=== PATIENT | female | born 1935 | race Caucasian/White ===

== ENCOUNTER → 2016-09-02 | Outpatient (CLI) | payer OTHER | LOC: BMCIMAGING 09:14 | DX: Z12.31 Encounter for screening mammogram for malignant neoplasm of breast (principal) | CPT/HCPCS: G0202 ==

== ENCOUNTER 2017-04-30 13:19 | Observation (INO) | payer OTHER, MEDICARE ==
[2017-04-30] MEDS ORDERED: diphenhydrAMINE 25 MG CAP PO ONE (13:46)
[2017-04-30] MEDS ORDERED: FAMOTIDINE 20 MG TAB PO ONE (13:46)
[2017-04-30] MEDS ORDERED: ASPIRIN EC 325 MG TAB PO ONE ×2 (13:46→14:29)
[2017-04-30] MEDS ORDERED: NS 1,000 ML IV ONE (13:46)
[2017-04-30] MEDS ORDERED: DIAZEPAM 5 MG TAB PO ONE (13:46)
[2017-04-30] MEDS ORDERED: methylPREDNISolone SOD SUCC 125 MG/2 ML VIAL IVP ONE (14:01)
[2017-04-30] MEDS ORDERED: FAMOTIDINE 20 MG/NACL 50 ML IV ONE (14:01)
--- NOTE | 2017-04-30 14:17 | PDHPUP ---
History & Physical Update H&P update statement: This history and physical update is based on an assessment of the patient which was completed after admission or registration (within 24 hours), but prior to the surgery/procedure. H&P update: H&P reviewed & patient examined, no change in patient's condition since H&P completed
--- NOTE | 2017-04-30 14:17 | PDPROPOC ---
Sedation Plan of Care Sedation Plan of Care: vital signs stable, mental status noted, patient educated of risks, benefits, alternatives, patient can tolerate sedation ASA Classification: ASA 2 Planned drugs: fentanyl, midazolam Mallampati Score: Class 1 Mallampati Reference Image: Patient passed 3-3-2 rule?: Yes
[2017-04-30] MEDS ORDERED: LIDOCAINE 1% 300 MG/30 ML SDV ONE (14:18)
[2017-04-30] MEDS ORDERED: MIDAZOLAM 2 MG/2 ML VIAL ONE (14:19)
[2017-04-30] MEDS ORDERED: IOPAMIDOL (ISOVUE-370) 150 ML BTL IV ONE (14:19)
[2017-04-30] MEDS ORDERED: HEPARIN 10,000 UNIT/10 ML MDV ONE (14:19)
[2017-04-30] MEDS ORDERED: fentaNYL 100 MCG/2 ML INJ ONE (14:19)
[2017-04-30] MEDS ORDERED: VERAPAMIL 5 MG/2 ML VIAL ONE (14:19)
[2017-04-30 14:23] LABS: PLATELET COUNT 295 10^3/uL (150-400)
--- NOTE | 2017-04-30 14:23 | CPEKG ---
Heart Rate: 85 RR Interval: 706 P-R Interval: 180 QRSD Interval: 88 QT Interval: 408 QTC Interval: 486 P [place]: 75 QRS [place]: 96 T Wave [place]: 17 EKG Severity - BORDERLINE ECG - EKG Impression: SINUS RHYTHM EKG Impression: CONSIDER RIGHT VENTRICULAR HYPERTROPHY EKG Impression: BORDERLINE PROLONGED QT INTERVAL Electronically Signed By: Luis Lock 30-Apr-2017 16:25:46
[2017-04-30] MEDS ORDERED: FAMOTIDINE 20 MG/NACL/50 ML BAG IV ONE (14:28)
[2017-04-30] MEDS ORDERED: methylPREDNISolone SOD SUCC 125 MG/2 ML VIAL ONE (14:28)
[2017-04-30] MEDS ORDERED: DIAZEPAM 5 MG TAB ONE (14:29)
[2017-04-30 14:35] LABS: INR 0.95 (0.83-1.16); PROTIME(PATIENT) 12.9 SEC (12.0-15.0)
--- NOTE | 2017-04-30 15:24 | PDDXCAT ---
Diagnostic Cath Note - . Date: 04/30/17 Clean Up Supervisor: Ferny Indication: Class I/II angina, intolerance to med therapy or failure to respond High-risk criteria on non-invasive testing: stress-induced moderate-size multiple perfusion defects - Procedure Access: right wrist Procedure: left heart catheterization, coronary angiography, left ventriculogram - Materials Left Heart Cath size: 5F Left Heart Cath materials: pigtail, other (SiteSeer4) - Findings-Left Heart Catheterization LM: Normal LAD: Normal LCX: Normal: Dominant RCA: Normal: Non dominant EDP: 18 mm of mercury LVEF: 55 Wall motion: Normal Complications: None Estimated blood loss: <50ml Closure method: TR Band Assessment: Angiographically normal coronary arteries. Normal LV systolic function.
[2017-04-30] MEDS: levETIRAcetam 500 MG TAB PO SCH (19:58)
[2017-04-30] MEDS ORDERED: ATORVASTATIN CALCIUM 10 MG TAB PO SCH (21:00)
[2017-04-30] MEDS ORDERED: ASPIRIN EC 81 MG TAB PO SCH (21:00)
[2017-05-01 07:45] VITALS: BP 102/67; PULSE 76; RESP 20; TEMP 97.6; O2SAT 95
[2017-05-01] MEDS: levETIRAcetam 500 MG TAB PO SCH (08:28)
[2017-05-01] MEDS ORDERED: CHOLECALCIFEROL VIT D3 1,000 UNITS TAB PO SCH (09:00)
[2017-05-01] MEDS ORDERED: ASCORBIC ACID 500 MG TAB PO SCH (09:00)
[2017-05-01] MEDS ORDERED: CYANO/VITAMIN B12 1000 MCG TAB PO SCH (09:00)
--- NOTE | 2017-05-01 09:15 | CPEKG ---
Heart Rate: 87 RR Interval: 690 P-R Interval: 224 QRSD Interval: 90 QT Interval: 392 QTC Interval: 472 P [place]: 72 QRS [place]: 87 T Wave [place]: -48 EKG Severity - ABNORMAL ECG - EKG Impression: SINUS RHYTHM EKG Impression: VENTRICULAR PREMATURE COMPLEX EKG Impression: FIRST DEGREE AV BLOCK EKG Impression: CONSIDER RIGHT VENTRICULAR HYPERTROPHY Electronically Signed By: Luis Lock 01-May-2017 09:35:24
--- NOTE | 2017-05-01 10:40 | PDDCSUM ---
Discharge Summary Discharge Summary: Date of admission 04/30/2017 Date of discharge 05/01/2017 Admission diagnosis PVCs, chest pain, abnormal stress test Discharge diagnosis: PVCs Procedure performed left heart catheterization coronary ventricular angiography. Follow-up Damian Fuller. Follow-up Chato Ray. Medications unchanged from admission. Metformin to be held for 48 hours. Hospital course patient was admitted electively for diagnostic coronary angiogram. This was done in the setting of chest pain, abnormal treadmill test , frequent PVCs. Patient was found have angiographically normal coronary arteries with normal LV systolic function. She was observed overnight with history of diabetes. Vital signs remained stable. Puncture site was healing well without erythema or edema. She is discharged home this morning with continued clinical care.
--- NOTE | 2017-05-01 10:59 | CPEKG ---
Heart Rate: 124 RR Interval: 484 QRSD Interval: 90 QT Interval: 316 QTC Interval: 454 QRS [place]: 101 T Wave [place]: 261 EKG Severity - ABNORMAL ECG - EKG Impression: SUPRVENTRICULAR TACHYCARDIA / ATRIAL FLUTTER, A-RATE 286 EKG Impression: MULTIFORM VENTRICULAR PREMATURE COMPLEXES EKG Impression: CONSIDER RVH W/ SECONDARY REPOL ABNORMALITY EKG Impression: NONSPECIFIC REPOL ABNORMALITY, LATERAL LEADS Electronically Signed By: Luis Lock 01-May-2017 13:52:31
--- NOTE | 2017-05-01 16:32 | ASDISCHSUM ---
Discharge Information Plan Status:Home with No Needs Medically Cleared to Leave:04/30/2017 Discharge Date:05/01/2017 11:57 AM CM D/C Disposition: ADT D/C Disposition:Home, Routine, Self-Care Projected Discharge Date:05/01/2017 12:00 AM Transportation at D/C: Discharge Delay Reason: Follow-Up Date:05/01/2017 12:00 AM Discharge Slot: Final Diagnosis: Placement Information Patient Contact Information Contact Name:YANETH Relationship:Son Address: City:[place] Alternate Phone: [facility]/Zip Code:[place] [address] Email: Financial Information Financial Class:MC Primary Plan Desc:MEDICARE OUTPATIENT Primary Plan Number:[id number] Secondary Plan Desc:MADELINE WILL PPO Secondary Plan Number:[id number] Assessment Information Intervention Information
== END 2017-05-01 11:57 | disposition home or self-care (01) ==
LOC: FCATH 13:19 → F2W 15:07
PROVIDERS: ADMIT Internal Medicine Interventional Cardiology; ATTEND Internal Medicine Interventional Cardiology
PROC: B2111ZZ Fluoroscopy of Multiple Coronary Arteries using Low Osmolar Contrast (ICD-10-PCS; principal; 2017-04-30)
PROC: B2151ZZ Fluoroscopy of Left Heart using Low Osmolar Contrast (ICD-10-PCS; principal; 2017-04-30)
PROC: 4A023N7 Measurement of Cardiac Sampling and Pressure, Left Heart, Percutaneous Approach (ICD-10-PCS; principal; 2017-04-30)
DX: I49.3 Ventricular premature depolarization (principal)
CPT/HCPCS: 93005; 93458; C1769; J1200; J1644; J2250; J2930; J3010; Q9967

== ENCOUNTER 2017-06-09 07:15 | Observation (INO) | payer OTHER, MEDICARE ==
[2017-06-09] MEDS ORDERED: NS 1,000 ML IV ONE (07:17)
--- NOTE | 2017-06-09 07:48 | CPEKG ---
Heart Rate: 79 RR Interval: 759 P-R Interval: 180 QRSD Interval: 88 QT Interval: 424 QTC Interval: 487 P [place]: 57 QRS [place]: 70 T Wave [place]: 260 EKG Severity - BORDERLINE ECG - EKG Impression: SINUS RHYTHM EKG Impression: VENTRICULAR PREMATURE COMPLEX EKG Impression: BORDERLINE ST DEPRESSION, LATERAL LEADS Electronically Signed By: Chato Ray 09-Jun-2017 08:35:18
[2017-06-09 08:02] LABS: PLATELET COUNT 259 10^3/uL (150-400)
[2017-06-09 08:08] LABS: INR 0.95 (0.83-1.16); PROTIME(PATIENT) 12.9 SEC (12.0-15.0)
[2017-06-09] MEDS ORDERED: BUPIVACAINE 0.5% 30 ML SDV ONE (08:23)
[2017-06-09] MEDS ORDERED: HEPARIN 10,000 UNIT/10 ML MDV (1,000 UNIT/ML) ONE (08:23)
--- NOTE | 2017-06-09 08:30 | PDANEPAE ---
ANE History of Present Illness SVT/ AT ANE Past Medical History - Cardiovascular History Hx Hypertension: No Hx Arrhythmias: Yes Hx Chest Pain: No Hx Coronary Artery / Peripheral Vascular Disease: No Hx CHF / Valvular Disease: No Hx Palpitations: Yes Cardiovascular History Comment: clean cath/echo, persistant SVT - Pulmonary History Hx COPD: No Hx Asthma/Reactive Airway Disease: No Hx Recent Upper Respiratory Infection: No Hx Oxygen in Use at Home: No Hx Sleep Apnea: No - Endocrine History Hx Diabetes: Yes Hypothyroid: No Hyperthyroid: No Obesity: no - Renal History Hx Renal Disorders: No - Liver History Hx Hepatic Disorders: No - Neurological & Psychiatric Hx Hx Neurological and Psychiatric Disorders: No - Cancer History Hx Cancer: No - Chronic Pain History Chronic Pain: No ANE Review of Systems Review of systems is: negative Review of Systems: - Exercise capacity Exercise capacity: >=4 METS - Systems Cardiac: Reports: palpitations ANE Patient History - Allergies Allergies/Adverse Reactions: latex Allergy (Verified 04/30/12 08:08) shellfish derived Allergy (Verified 04/30/12 08:08) - Home Medications Home Medications: Atorvastatin Calcium [Lipitor 10 mg (*)] 10 mg PO HS 04/30/12 [Last Taken 21:00] Herbals/Supplements -Info Only 1 each PO AD 04/30/12 [Last Taken 04/27/12 09:00] levETIRAcetam [Keppra 500 mg (*)] 500 mg PO BIDMEAL 04/30/12 [Last Taken 08:00] Ascorbic Acid [Vitamin C 500 mg (*)] 500 mg PO DAILY 04/28/17 [Last Taken 08:00] Aspirin EC [Aspirin EC 81 mg (*)] 81 mg PO HS 04/28/17 [Last Taken 04/29/17 08: 00] Cholecalciferol Vit D3 [Vitamin D3 (*)] 2,000 units PO DAILY 04/28/17 [Last Taken 04/29/17 08:00] Cyanocobalamin [Vitamin B12 (*)] 2,000 mcg PO DAILY 04/28/17 [Last Taken 08:00] Docusate Sodium [Colace 100 MG (*)] 100 mg PO HS 04/28/17 [Last Taken Unknown] Metoprolol Tartrate [Lopressor 25 mg (*)] 25 mg PO BIDMEAL 06/02/17 [Last Taken Unknown] Vitamin B Complex [B Complex] 1 each PO DAILY 06/02/17 [Last Taken Unknown] metFORMIN HCL [Metformin HCl ER] 1,000 mg PO HS 06/02/17 [Last Taken Unknown] - NPO status NPO Status: no food or drink >8 hours - Anes Hx Anes Hx: no prior problems - Smoking Hx Smoking Status: Never smoked - Alcohol Use Alcohol Use: None - Family Anes Hx Family Anes Hx: none ANE Labs/Vital Signs - Labs Result Diagrams: 06/09/17 07:50 06/09/17 07:50 - Vital Signs Vital Signs: reviewed preoperatively; see RN documention for details Height: 173 cm Weight: 63.5 kg ANE Physical Exam - Airway Neck exam: decreased ROM Mallampati Score: Class 2 Mouth exam: normal dental/mouth exam - Pulmonary Pulmonary: no respiratory distress - Cardiovascular Cardiovascular: regular rate and rhythym - ASA Status ASA Status: III ANE Anesthesia Plan Anesthesia Plan: general endotracheal anesthesia
[2017-06-09] MEDS ORDERED: ROCURONIUM 100 MG/10 ML VIAL ONE (08:33)
[2017-06-09] MEDS ORDERED: PROPOFOL 200 MG/20 ML VIAL ONE (08:33)
[2017-06-09] MEDS ORDERED: PROPOFOL/EMULSION 500 MG/50 ML BOTTLE IV ONE ×2 (08:33→09:45)
--- NOTE | 2017-06-09 08:34 | PDGENHP ---
History & Physical Chief Complaint: palpitations History of Present Illness: palpitations Relevant Physical Exam: s1s2 rrr cta ao3 Cardiorespiratory Assessment: symptomatic at for eps and ablation
[2017-06-09] MEDS ORDERED: fentaNYL 100 MCG/2 ML INJ ONE (10:36)
[2017-06-09] MEDS ORDERED: SUGAMMADEX SODIUM 200 MG/2 ML VIAL IVP ONE (10:46)
[2017-06-09] MEDS ORDERED: ONDANSETRON 4 MG/2 ML VIAL IVP PRN (10:53)
--- NOTE | 2017-06-09 11:03 | EPPROC ---
Electrophysiology Procedure Note: ELECTROPHYSIOLOGIC STUDY AND CATHETER MEDIATED ABLATION FOR focal atrial tachycardia and SUBEUSTACHIAN ISTHMUS DEPENDENT COUNTERCLOCKWISE ATRIAL FLUTTER: INDICATION: Multiple episodes of atrial tachycardia on monitoring PROCEDURES PERFORMED: 43947-63 EP evaluation with RA/RV/LA pace/record, with arrhythmia induction 01277-71 EP evaluation with RA/RV pace record, insert/reposition catheter, with arrhythmia induction 57797 SVT ablation 2nd arrhythmia 52892 3D mapping Fluoroscopy Catheters & Anesthesia: The patient arrived in the Electrophysiology Laboratory in the fasting state. The right clavicular region, right groin, and left groin area were prepped and draped in the usual sterile manner. Anesthesiologist Dr. Maurice Rodriguez administered general anesthesia. Appropriate non-invasive blood pressure, pulse oximetry and end-tidal CO2 monitoring was established. All catheters were placed percutaneously using the modified Seldinger technique , and advanced into position under fluoroscopic guidance. One #7 Cuban deflectable octapolar electrode catheter was advanced to the His-bundle position via the left femoral vein. One #7 Cuban deflectable catheter with 10 pairs of electrodes was placed via the left femoral vein into the coronary sinus. One # 7 Cuban Halo catheter was inserted through the right femoral vein and was placed at the tricuspid annulus. Heparin was administered to keep ACT > 200 seconds. Programmed stimulation was performed from the right atrium, coronary sinus ( left atrium) and right ventricle. Parahisian pacing demonstrated VA block. During infusion of isoproterenol 1 michael per minute, atrial tachycardia, cycle length 420-520 milliseconds was induced. A D curve ST SF catheter was placed in right atrium via SR 0 sheath. 3D mapping was performed. Earliest activation was noted at the lateral aspect of the SVC RA junction. Ablation at this site accelerated and then terminated the tachycardia. Prior to ablation, high output pacing confirmed no phrenic nerve capture. Following this, spontaneous brief episodes of atrial fibrillation lasting for less than 5 seconds followed by sustained atrial flutter were noted. Entrainment mapping from the Halo and coronary sinus catheter confirmed cavo tricuspid isthmus dependent atrial flutter. SR 0 sheath was changed to ramp 1 sheath. In preparation for ablation of typical atrial flutter, a high-resolution 3D (3 dimensional) Carto electroanatomical map of the sub-Eustachian isthmus and right atrium was obtained during pacing of the posterolateral coronary sinus. Radiofrequency applications were applied between the tricuspid annulus at 0630 oclock as seen in the [place] view and the inferior vena cava. This achieved conduction block across the isthmus. Bidirectional block persisted with septal to lateral conduction time of 170 milliseconds. The catheters were removed. Vascular access sheaths were removed in the EP lab after pursestring suture was applied to the vascular access sites. Patient was transferred to the [facility] in stable condition.. There were no apparent complications. SCL 780 ms AH 105 ms HV 40 ms Antegrade WBB 490 ms, no antegrade slow AV konrad pathway Retrograde VA block CONCLUSIONS: 1. Focal right atrial tachycardia arising at the lateral aspect of the SVC RA junction. Successful ablation. 2. 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 3. Successful catheter mediated ablation of cavotricuspid isthmus achieving bi -directional conduction block across cavotricuspid isthmus. 4. No atrial arrhythmias inducible post ablation. 5. No apparent complications. Patient Problems: Problems Problem Status Onset Atrial tachycardia Acute Shortness of breath Acute
[2017-06-09] MEDS ORDERED: NALOXONE HCL 0.4 MG/ML INJ IVP PRN (11:12)
[2017-06-09] MEDS ORDERED: fentaNYL 100 MCG/2 ML INJ IVP PRN (11:12)
--- NOTE | 2017-06-09 11:12 | POSTANESTH ---
Post Anesthetic Evaluation Cardiovascular Status: Normal, Stable Respiratory Status: Normal, Stable Level of Consciousness/Mental Status: Can Participate in Eval Pain Control: Adequate, Prn Tx Ordered Nausea/Vomiting Control: Adequate, Prn Tx Ordered Complications Possibly Related to Anesthesia: None Noted
--- NOTE | 2017-06-09 11:19 | CPEKG ---
Heart Rate: 77 RR Interval: 779 P-R Interval: 128 QRSD Interval: 92 QT Interval: 392 QTC Interval: 444 P [place]: 67 QRS [place]: 61 T Wave [place]: 253 EKG Severity - ABNORMAL ECG - EKG Impression: SINUS RHYTHM EKG Impression: INCOMPLETE RIGHT BUNDLE BRANCH BLOCK EKG Impression: NONSPECIFIC T ABNORMALITIES, LATERAL LEADS Electronically Signed By: Martínez Zelaya 09-Jun-2017 16:05:12
[2017-06-09] MEDS: levETIRAcetam 500 MG TAB PO SCH (18:08)
[2017-06-09 20:23] VITALS: RESP 16
[2017-06-09] MEDS ORDERED: METFORMIN HCL 1000 MG PO SCH (21:00)
[2017-06-09] MEDS ORDERED: DOCUSATE SODIUM 100 MG CAP PO SCH (21:00)
[2017-06-09] MEDS ORDERED: ATORVASTATIN CALCIUM 10 MG TAB PO SCH (21:00)
[2017-06-10 04:43] LABS: PLATELET COUNT 199 10^3/uL (150-400)
[2017-06-10 04:45] VITALS: PULSE 75
[2017-06-10] MEDS: METOPROLOL TARTRATE 25 MG TAB PO SCH ×3 (06:17→10:50)
[2017-06-10 06:30] LABS: CREATINE KINASE 86 IU/L (0-156)
[2017-06-10 07:48] VITALS: BP 91/53; TEMP 98.3; O2SAT 97
[2017-06-10] MEDS: levETIRAcetam 500 MG TAB PO SCH (08:33)
[2017-06-10] MEDS ORDERED: ASPIRIN 81 MG CHEWABLE TAB PO SCH (09:00)
--- NOTE | 2017-06-10 09:03 | CPEKG ---
Heart Rate: 75 RR Interval: 800 P-R Interval: 188 QRSD Interval: 88 QT Interval: 432 QTC Interval: 483 P [place]: 57 QRS [place]: 83 T Wave [place]: -82 EKG Severity - BORDERLINE ECG - EKG Impression: SINUS RHYTHM EKG Impression: Incomplete RBBB EKG Impression: BORDERLINE T ABNORMALITIES, INFERIOR LEADS Electronically Signed By: Chato aRy 10-Jun-2017 11:17:33
--- NOTE | 2017-06-10 10:55 | GDS ---
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 DISCHARGE DIAGNOSES: 1. Atrial tachycardia status post ablation. 2. Atrial flutter status post ablation. 3. Occasional PVCs. 4. Abrasion medial to her left eye. HOSPITAL COURSE: For detailed H and P, please see prior dictation. Briefly, the patient is an 82-ye ar-old female, who is typically followed by Dr. 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 Over the past few months, she has noted exercise intolerance and palpitations with exercise. She was started on a beta regine without any i mprovement in her symptoms. She did wear a ZIO monitor and was found to have 3856 episodes in a week with the rates ranging from 114-158 beats per minute. This was most consistent with an atrial tachy cardia. Her symptoms were not controlled with beta regine, and she was complaining with fatigue on the medication. Ultimately, decision was made to proceed with EP study and ablation. She was found to have atrial tachycardia and atrial flutter, both of which were ablated on June [address] Chato Ray. The procedure was uncomplicated. The following morning, the patient denied any chest discomfo rt or palpitations. She was monitored on telemetry and had occasional PVCs without any atrial arrhyt hmias. Her EKG the day of discharge revealed normal sinus rhythm with diffuse T-wave flattening, whi ch is unchanged. An echocardiogram preliminary results showed preserved LV function without any evid ence of pericardial effusion. Her blood pressure at rest has been on average 95/55. She has been complaining with fatigue on metop rolol and, therefore, the medication will be discontinued. She awoke from her procedure and noted an abrasion medial of her left eye. This morning, it felt mil dly swollen with increased tearing. PHYSICAL EXAMINATION: GENERAL: Patient appears in no acute distress. VITALS: Blood pressure 91/53 , heart rate 75, oxygen saturation of 97% on room air, afebrile. HEENT: Her left eye shows a small abrasion just medial to the eye. She has very mild puffiness of the eye. LUNGS: Clear to auscultat ion. No wheezes, rhonchi, or crackles auscultated. CARDIAC: Regular rate and rhythm without any si gnificant murmurs, rubs, or gallops appreciated. EXTREMITIES: Bilateral groins where access was obt ained for the EP study and ablation are clean, intact, without any evidence of infection or hematoma. DISCHARGE MEDICATIONS: Her medications will remain the same, except for metoprolol has been disconti nued. She will continue Keppra 500 mg b.i.d., Lipitor 10 mg at bedtime, herbal supplement daily, vit benítez D3 2000 units daily, vitamin C 500 mg daily, vitamin B12 2000 mcg daily, aspirin 81 mg at bed e, Colace 100 mg at bedtime, metformin ER 1000 mg at bedtime, vitamin B complex daily. PLAN: The patient is currently stable and ready for discharge home. She will follow up with Dr. Ray as scheduled on July 18 at 2:30. She will schedule an appointment with her cocoa mill operator in next 1-2 days to assess the mild edema and increased tearing. Greater than 30 minutes was spent coordinating the patient's care today. /[id number]/MODL
--- NOTE | 2017-06-10 13:13 | ECHO ---
[email or web address] [address] Main: [phone] Fax: Transthoracic Echocardiogram Name: SUMMER MCCOY MR#: [id number] Study Date: 06/10/2017 Study Time: 09:06 AM Date of : 1935 Age: 82 year(s) Height: 172.7 cm (68 in.) Weight: 63.5 kg (140 lb.) BSA: 1.76 m2 Gender: Female Examination: Echo Indication: F/U post EP study Image Quality: Contrast: Requested by: Chato Ray BP: 91 mmHg/53 mmHg Heart Rate: Rhythm: Indication: F/U post EP study Procedure Staff Professional Model: Alida Jamil [facility] Reading Physician: Martínez Zelaya Requesting Provider: Conclusions: Normal size left ventricle. Normal global systolic LV function. The ejection fraction is estimated to be 65-70 %. No regional wall motion abnormality. 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 Mild mitral valve regurgitation is present. Mild tricuspid regurgitation is present. The pulmonary artery pressure is normal. No pericardial effusion. Measurements: Chambers Valvular Assessment AV/MV Valvular Assessment TV/PV Normal Normal Normal Name Value Range Name Value Range Name Value Range Ao Nury (MM): 3.6 cm (2.2 cm-3.7 AV Vmax: 1.01 m/s (1 m/s-1.7 TR Vmax: 2.78 mm/s ( - ) cm) m/s) TR PGmax: 31 mmHg ( - ) IVSd (2D): 0.8 cm (0.6 cm-1.1 AV maxP mmHg ( - ) syst. PAP: 36 mmHg ( - ) cm) MV E Vmax: 0.66 m/s ( - ) LVDd (2D): 3.7 cm (3.9 cm-5.3 MV A Vmax: 0.84 m/s ( - ) cm) MV E/A: 0.79 ( - ) LVDs (2D): 2.3 cm (2.1 cm-4 cm) LVPWd (2D): 0.8 cm ( - ) LVEF (MOD4): 64 % (>=55 %) EF Range: 65-70 % Continued Measurements: Chambers Valvular Assessment AV/MV Valvular Assessment TV/PV Patient: SUMMER MCCOY Study Date: 06/10/2017 Page 1 of 2 09:06 AM Name Value Name Value Name Value LADs: 3.6 cm MV E' Septal: 0.07 m/s CVP (est.): 5 mmHg LADs Lon.3 cm MV E/E' Septal: 9.00 LA Area: 14.9 cm2 MV E/E' Lateral: 8.30 Findings: Left Ventricle: Normal size left ventricle. No LV hypertrophy. Normal global systolic LV function. The ejection fraction is estimated to be 65-70 %. No regional wall motion abnormality. Right Ventricle: Normal size right ventricle. Left Atrium: The left atrium is normal in size. 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 Right Atrium: The right atrium is normal in size. Mitral Valve: The mitral valve is normal in appearance and function. Mild mitral valve regurgitation is present. Aortic Valve: The aortic valve is normal in appearance and function. Tricuspid Valve: The tricuspid valve is normal in appearance and function. Mild tricuspid regurgitation is present. The pulmonary artery pressure is normal. Pulmonic Valve: The pulmonic valve is normal in appearance and function. Trivial pulmonic valve regurgitation. Aorta: The aorta is normal. Pericardium: No pericardial effusion. There is pericardial fat. (No Signature Object) Patient: SUMMER MCCOY Study Date: 06/10/2017 Page 2 of 2 09:06 AM [id number]
== END 2017-06-10 12:00 | disposition home or self-care (01) ==
LOC: FCATH 07:15 → F2W 10:51
PROVIDERS: ADMIT Internal Medicine Cardiovascular Disease; ATTEND Internal Medicine Cardiovascular Disease
PROC: 5A1213Z Performance of Cardiac Pacing, Intermittent (ICD-10-PCS; principal; 2017-06-09)
PROC: 02573ZZ Destruction of Left Atrium, Percutaneous Approach (ICD-10-PCS; principal; 2017-06-09)
PROC: 025K3ZZ Destruction of Right Ventricle, Percutaneous Approach (ICD-10-PCS; principal; 2017-06-09)
PROC: 02K83ZZ Map Conduction Mechanism, Percutaneous Approach (ICD-10-PCS; principal; 2017-06-09)
PROC: 02563ZZ Destruction of Right Atrium, Percutaneous Approach (ICD-10-PCS; principal; 2017-06-09)
PROC: 4A023FZ Measurement of Cardiac Rhythm, Percutaneous Approach (ICD-10-PCS; principal; 2017-06-09)
DX: I47.1 Supraventricular tachycardia (principal); I48.92 Unspecified atrial flutter; I49.3 Ventricular premature depolarization; S00.212A Abrasion of left eyelid and periocular area, initial encounter
CPT/HCPCS: 93005; 93306; 93613; 93621; 93623; 93653; 93655; C1730; C1731; C1732; C1893; J1644; J2704; J3010

== ENCOUNTER → 2017-10-14 | Outpatient (CLI) | payer OTHER, MEDICARE | LOC: BMCIMAGING 09:14 | PROVIDERS: ATTEND Internal Medicine | DX: Z12.31 Encounter for screening mammogram for malignant neoplasm of breast (principal) ==